=== PATIENT | male | born 1970 ===

== ENCOUNTER 2022-09-11 18:27 | Emergency (ER) | payer MEDICAID ==
[2022-09-11 19:20] LABS: ESTIMATED GFR 103 mL/min (>60)
[2022-09-11] MEDS ORDERED: Lidocaine 5% 700 MG Patch TOP ONE (20:07)
== END 2022-09-11 20:17 ==
LOC: JP.ED 18:27
DX: S22.42XA Multiple fractures of ribs, left side, initial encounter for closed fracture (principal); S30.1XXA Contusion of abdominal wall, initial encounter; F10.920 Alcohol use, unspecified with intoxication, uncomplicated; Y90.8 Blood alcohol level of 240 mg/100 ml or more; W19.XXXA Unspecified fall, initial encounter
CPT/HCPCS: 36415; 71250; 80053; 80305-QW; 80307; 81001; 85025; 99283; 99284; A9270-GY